=== PATIENT | female | born 1985 | race Caucasian/White ===

== ENCOUNTER → 2016-07-11 | Outpatient (CLI) | payer MEDICAID ==
--- NOTE | 2016-07-11 16:35 | US ---
Ultrasound Pelvis Complete (Transabdominal and Endovaginal) Including Duplex/Doppler Imaging History: R 10.2, pelvic pain, IUD Technique: Transabdominal and endovaginal ultrasound images were obtained. Endovaginal images obtain ed for better evaluation of the uterine myometrium and adnexa. Duplex/Doppler imaging of adnexa. Findings: Uterus measures 10 x 5 x 6 cm. IUD appears in good position centrally within the fundus re gion of the endometrium. Endometrial thickness is 13 mm. No definite uterine leiomyomata. Right ovary measures 3.8 x 3.3 x 2.4 cm. Left ovary measures 4.1 x 4 x 3.5 cm. Complex left ovarian c yst measuring 3.6 x 3.4 x 3.1 cm with septations and internal debris which may represent a hemorrhagi c cyst. Partially collapsed follicle in the right ovary measuring 2 x 1.7 x 1.1 cm. No significant f ree fluid in the pelvis. Color Doppler flow to both ovaries without torsion. Impression: 1. IUD appears in good position. 2. Left ovarian complex cyst measuring 3.6 x 3.4 x 3.1 cm probably representing a hemorrhagic cyst, r ecommend followup ultrasound in 8 to 12 weeks. 3. No ovarian torsion or significant free fluid.
== END ==
LOC: FIMAGING 12:36
PROVIDERS: ATTEND Nurse Practitioner
DX: R10.2 Pelvic and perineal pain (principal); N83.202 Unspecified ovarian cyst, left side; Z30.431 Encounter for routine checking of intrauterine contraceptive device

== ENCOUNTER → 2016-10-03 | Outpatient (CLI) | payer MEDICAID | LOC: FIMAGING 07:07 | PROVIDERS: ATTEND Nurse Practitioner | DX: N83.201 Unspecified ovarian cyst, right side (principal); Z97.5 Presence of (intrauterine) contraceptive device ==

== ENCOUNTER → 2017-01-25 | Outpatient (CLI) | payer MEDICAID | LOC: FIMAGING 07:24 | PROVIDERS: ATTEND Nurse Practitioner | DX: N83.201 Unspecified ovarian cyst, right side (principal); Z97.5 Presence of (intrauterine) contraceptive device ==